=== PATIENT | female | born 1985 | race Two or more races ===

== ENCOUNTER → 2024-09-14 | Outpatient (CLI) | payer OTHER, SELFPAY ==
[2024-09-14 12:22] LABS: Basophils % (Auto) 1 % (0-2.5); Eosinophils # (Auto) 0.1 Thou/mm3 (0.0-0.5); Eosinophils % (Auto) 2 % (0-10); Hematocrit 33.5 % (36.0-46.0); Hemoglobin 10.7 g/dL (12.0-16.0); Immature Granulocytes % (Auto) 0 % (0-0); Immature Granulocytes Auto 0.01 Thou/mm3 (0.00-0.00); Lymphocytes # (Auto) 2.2 Thou/mm3 (1.0-4.8); Lymphocytes % (Auto) 47 % (10-50); Mean Corpuscular HGB Conc 31.9 g/dl (31.0-37.0); Mean Corpuscular Hemoglobin 28.5 pg (25.0-35.0); Mean Corpuscular Volume 89 fL (80-100); Monocytes # (Auto) 0.4 Thou/mm3 (0.0-0.8); Monocytes % (Auto) 8 % (0-12); Neutrophils % (Auto) 42 % (37-80); Nucleated Red Blood Cell % 0 /100 WBC (0); Platelet Count 319 Thou/mm3 (140-440); Red Blood Count 3.76 Miln/mm3 (4.00-5.20); White Blood Count 4.8 Thou/mm3 (3.6-11.0)
== END | disposition home or self-care (01) ==
LOC: COPL 11:29
PROVIDERS: PCP Nurse Practitioner Family; Referring Provider Surgery Surgery of the Hand; Visit Provider Surgery Surgery of the Hand
DX: Z01.818 Encounter for other preprocedural examination (principal); M24.132 Other articular cartilage disorders, left wrist
CPT/HCPCS: 36415; 85025